=== PATIENT | female | born 2005 | race Caucasian/White ===

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

== ENCOUNTER 2025-03-21 20:55 | Emergency (ER) | payer OTHER ==
[~2025-03-21] VITALS: Ht 165.1 cm; Wt 61.2 kg
[~2025-03-21 20:55] MED LIST changes: +CIPRO500 MG PO
== END 2025-03-21 23:50 | disposition home or self-care (01) ==
LOC: ED 20:55
DX: S70.01XA Contusion of right hip, initial encounter (principal); W22.09XA Striking against other stationary object, initial encounter; Y93.89 Activity, other specified; Y92.89 Other specified places as the place of occurrence of the external cause; Y99.8 Other external cause status

== ENCOUNTER 2025-04-02 15:12 | Emergency (ER) | payer OTHER ==
[~2025-04-02] VITALS: Ht 165.1 cm; Wt 63.5 kg
[2025-04-02 16:22] LABS: BILIRUBIN Negative (Negative); BLOOD Negative (Negative); CLARITY Clear (Clear); COLOR Yellow (Yellow); KETONE Trace (Negative); LEUKO ESTERASE Trace (Negative); NITRITE Negative (Negative); PH 6.0 (4.5-8.0); SPECIFIC GRAVITY >= 1.030 (1.001-1.030); UROBILINOGEN 1.0 E.U./dl (0.0-1.0)
[2025-04-02 16:23] LABS: BASO # 0.1 10*3/uL (0.0-0.1); BASO % 1.1 % (0.0-1.0); EOS # 0.3 10*3/uL (0.0-0.4); EOS % 4.8 % (1.0-4.0); MEAN CELL VOLUME 91.0 fl (81.0-99.0); MEAN CORPUSCULAR HGB 29.6 pg (27.0-31.0); MEAN PLATELET VOLUME 10.8 fl (9.6-12.3); MONO # 0.5 10*3/uL (0.1-1.0); MONO % 8.8 % (3.0-9.0); NEUT # 2.4 10*3/uL (2.3-7.9); NEUT % 41.8 % (47.0-73.0); NUCLEATED RED BLOOD CELL 0.0 % (0.0-0.0); NUCLEATED RED BLOOD CELL 0.0 10*3/uL (0.0-0.0); PLATELET COUNT AUTOMATED 240 10*3/uL (130-400); RED CELL DISTRI WIDTH 12.4 % (0-14.5)
[2025-04-02 16:43] LABS: BACTERIA 1+; MUCOUS TRACE
[2025-04-02 16:44] LABS: BUN 17 mg/dl (9-23); SGPT/ALT 14 U/L (5-49)
[2025-04-02] MEDS ORDERED: Nitrofurantoin Monohydrate/N 100 MG CAP PO ONE (18:20)
[2025-04-02] MEDS ORDERED: SODIUM CHLORIDE 0.9% 1,000 ML IV ONE (18:20)
[2025-04-02] MEDS ORDERED: MACROBID100 M1 PO (18:40)
== END 2025-04-02 20:43 | disposition home or self-care (01) ==
LOC: ED 15:12
DX: N39.0 Urinary tract infection, site not specified (principal); E16.2 Hypoglycemia, unspecified; K21.9 Gastro-esophageal reflux disease without esophagitis; M25.569 Pain in unspecified knee; R19.7 Diarrhea, unspecified; J02.9 Acute pharyngitis, unspecified; R05.9 Cough, unspecified

== ENCOUNTER 2025-07-11 05:50 | Emergency (ER) | payer OTHER ==
[~2025-07-11] VITALS: Ht 165.1 cm; Wt 63.5 kg
[2025-07-11] MEDS ORDERED: Albuterol Sulf/Ipratropium 3 ML VIAL NEB ONE (06:50)
[2025-07-11] MEDS ORDERED: ACETAMINOPHEN 325 MG TAB PO ONE (06:50)
== END 2025-07-11 07:31 | disposition home or self-care (01) ==
LOC: ED 05:50
DX: J11.1 Influenza due to unidentified influenza virus with other respiratory manifestations (principal); F41.9 Anxiety disorder, unspecified; F32.A Depression, unspecified